=== PATIENT | female | born 1980 | race African-American/Black ===

== ENCOUNTER → 2016-04-27 | Outpatient (CLI) | payer BC ==
[~2016-04-27] MED LIST: MULTIVITAMIN FO1 CAP PO; PRILOSEC 20MG20 MG PO; WELLBUTRIN XL150 MG; ZOLOFT 25MG25 MG; ZYRTEC 10MG10 MG PO
== END ==
LOC: SUN.DIA 03-26 10:12
DX: E11.9 Type 2 diabetes mellitus without complications (principal); Z79.84 Long term (current) use of oral hypoglycemic drugs; E66.9 Obesity, unspecified; Z68.31 Body mass index [BMI] 31.0-31.9, adult; Z71.3 Dietary counseling and surveillance; E78.5 Hyperlipidemia, unspecified

== ENCOUNTER → 2016-08-10 | Outpatient (CLI) | payer BC | LOC: BHSO 11:41 | DX: F33.1 Major depressive disorder, recurrent, moderate (principal) ==

== ENCOUNTER → 2016-08-31 | Outpatient (CLI) | payer BC | LOC: BHSO 13:36 | DX: F33.41 Major depressive disorder, recurrent, in partial remission (principal) ==

== ENCOUNTER → 2016-09-24 | Outpatient (CLI) | payer BC | LOC: BHSO 15:24 | DX: F33.41 Major depressive disorder, recurrent, in partial remission (principal) ==

== ENCOUNTER → 2016-11-06 | Outpatient (CLI) | payer BC | LOC: BHSO 11:38 | DX: F33.1 Major depressive disorder, recurrent, moderate (principal) ==

== ENCOUNTER → 2016-11-10 | Outpatient (CLI) | payer BC | LOC: SUN.DIA 11-02 13:01 | DX: E11.9 Type 2 diabetes mellitus without complications (principal); E78.5 Hyperlipidemia, unspecified; E66.9 Obesity, unspecified; Z68.32 Body mass index [BMI] 32.0-32.9, adult; Z71.3 Dietary counseling and surveillance | CPT/HCPCS: G0108 ==

== ENCOUNTER → 2017-01-22 | Outpatient (CLI) | payer BC | LOC: BHSO 08:27 | DX: F41.1 Generalized anxiety disorder (principal) ==

== ENCOUNTER → 2017-04-16 | Outpatient (CLI) | payer BC | LOC: BHSO 15:05 | DX: F33.41 Major depressive disorder, recurrent, in partial remission (principal) | CPT/HCPCS: G0463 ==

== ENCOUNTER → 2017-10-22 | Outpatient (CLI) | payer SELFPAY | LOC: BHSO 01-07 00:07 | DX: F41.1 Generalized anxiety disorder (principal) | CPT/HCPCS: G0463 ==

== ENCOUNTER → 2018-06-22 | Outpatient (CLI) | payer SELFPAY | LOC: BHSO 11:08 | DX: F33.41 Major depressive disorder, recurrent, in partial remission (principal) | CPT/HCPCS: G0463 ==

== ENCOUNTER → 2018-10-14 | Outpatient (CLI) | payer SELFPAY | LOC: BHSO 10:20 | DX: F41.1 Generalized anxiety disorder (principal) | CPT/HCPCS: G0463 ==

== ENCOUNTER → 2019-05-15 | Outpatient (CLI) | payer SELFPAY | LOC: BHSO 10:20 | DX: F33.42 Major depressive disorder, recurrent, in full remission (principal) | CPT/HCPCS: G0463 ==